=== PATIENT | male | born 1995 | race Caucasian/White ===

== ENCOUNTER 2018-01-12 01:58 | Emergency (ER) | payer BC ==
[~2018-01-12] VITALS: Ht 170.2 cm; Wt 81.4 kg
[2018-01-12 02:03] VITALS: Ht 170.2 cm; Wt 81.4 kg
[2018-01-12] MEDS ORDERED: TRAMADOL HCL 50 MG HOME PACK PO ONE (02:15)
[2018-01-12] MEDS ORDERED: CLINDAMYCIN HCL 150 MG CAP PO ONE (02:15)
[2018-01-12 02:33] VITALS: BP 138/83; PULSE 75; TEMP 36.8; O2SAT 100
[2018-01-12] MEDS ORDERED: CLIN150C PO (02:35)
[2018-01-12] MEDS ORDERED: TRAM-10 PO (02:35)
--- NOTE | 2018-01-12 03:59 | EMERGENCY ROOM VISIT NOTE ---
History First contact with patient: 02:08 Chief Complaint: DENTAL PAIN Stated Complaint: EXTREME TOOTH PAIN,NAUSEA,DIARRHEA Nursing Triage Summary: C/o top right dental pain. Appointment for dentist later in week. History of Present Illness The patient is a 22 year old male who presents to the Emergency Room with complaints of worsening right upper dental pain for the past few days he saw the dentist the other day and had a temporary filling placed. He was given T threes. No antibiotics. Pain described as throbbing, range in severity 8 out of 10. Nothing makes it better or worse. It does not radiate. Patient denies fever, chills, chest pain, dyspnea, cold symptoms, sore throat, earache. Review of Systems An 10 system review of systems was completed with positives and pertinent negatives listed in the HPI. Past Medical/Surgical History None Social History Smoking Status: Never Smoker Alcohol Use: none Marital Status: in relationship Current/Historical Medications Scheduled Clindamycin Hcl (Cleocin), 150 MG PO QID Scheduled PRN Tramadol (Ultram), 1 TAB PO Q4H PRN for Pain Miscellaneous Medications None (Patient States No Home Meds) Physical Exam Vital Signs Date Time Temp Pulse Resp B/P (MAP) Pulse Ox O2 Delivery O2 Flow Rate FiO2 01/12/18 02:33 36.8 75 18 138/83 100 18 02:03 36.8 75 18 138/83 100 Room Air Physical Exam VITALS: Vitals are noted on the nurse's note and reviewed by myself. Vital signs stable. GENERAL: White male, in no acute distress, nondiaphoretic, well-developed well- nourished. SKIN: The skin was without rashes, erythema, edema, or bruising. There is no tenting of the skin. Capillary reflex less than 2 seconds. HEAD: Normocephalic atraumatic. EARS: External auditory canals clear, tympanic membranes [place] without erythema or effusion bilaterally. EYES: Pupils equal round and reactive to light and accommodation. Conjunctivae without injection, sclerae without icterus. Extraocular movements intact. NOSE: Patent, turbinates without inflammation or discharge. No sinus tenderness. MOUTH: Mucous membranes moist. Pharynx without erythema or exudate. Uvula midline. Airway patent. Tongue does not deviate. Dental exam: Extensive dental decay throughout the mouth without palpable abscess. No Evert's angina NECK: Supple without nuchal rigidity. No lymphadenopathy. No thyromegaly. Cervical spine is nontender. No JVD. HEART: Regular rate and rhythm without murmurs gallops or rubs. LUNGS: Clear to auscultation bilaterally without wheezes, rales or rhonchi. No dullness to percussion. No retractions or accessory muscle use. ABDOMEN: Positive bowel sounds x 4. Normal tympanic percussion. Soft, nontender, without masses or organomegaly. Epperson sign negative. No guarding or rebound tenderness. MUSCULOSKELETAL: No muscle atrophy, erythema, or edema noted. NEURO: Patient was alert and oriented to person place and time. No focal neurological deficits. Medical Decision & Procedures Medications Administered Medications (Trade) Dose Ordered Sig/Emmanuel Route Start Time Stop Time Status Last Admin Dose Admin Clindamycin HCl (Cleocin Cap) 150 mg NOW ONCE PO 01/12/18 02:15 2 02:16 DC 01/12/18 02:27 150 MG Tramadol HCl (Ultram Home Pack) 1 homepack UD ONCE PO 01/12/18 02:15 218 02:16 DC 01/12/18 02:27 1 HOMEPACK ED Course Prior records reviewed and summarized as above. Triage Nursing notes reviewed. The patient's history was concerning for dental pain Differential diagnosis: Etiologies such as cellulitis, abscess, gingivitis, cavity, Evert's angina, as well as others were entertained.. Physical examination: The physical examination was consistent with dental caries ER treatment provided: Clindamycin, Ultram On reassessment the patient felt better. Diagnostics interpreted by me: Deferred This appears to be dental pain from dental caries. Patient had no palpable abscess. He is counseled on proper dental hygiene. He stated that the T3's did not help. He is informed to turn these into the pharmacy then. He was advised to see his dentist as soon as possible for his ongoing dental issues or here in the ER sooner for fevers, facial swelling, neck stiffness, worsening signs or symptoms or as needed. By the evaluation outlined above emergent etiologies such as abscess, Evert's angina, as well as others were deemed relatively unlikely. The pt informed about the findings as listed above. All questions were answered and pleased with the treatment. Return instructions were outlined and the patient was discharged in stable condition. Outpatient prescription management: Clindamycin, Ultram Referral: The patient was referred back to dentistry for follow-up in 2 to 3 days for a recheck of the current condition. Medical Decision As above [place] Drug Monitoring Program Search Results: patient reviewed within database, see additional documentation (Patient had 40 T3 prescribed by the dentist) Medication Reconcilliation Current Medication List: was personally reviewed by me Blood Pressure Screening Patient's blood pressure: Normal blood pressure Impression Primary Impression: Tooth pain with chewing Additional Impression: Dental caries Departure Information Dispostion Home / Self-Care Condition GOOD Prescriptions Tramadol (Ultram) 50 Mg Tab 1 TAB PO Q4H Y for Pain, #14 TAB For Initial Treatment Prov: Linda Del Real .ANGELIA 01/12/18 Clindamycin Hcl (CLEOCIN) 150 Mg Cap 150 MG PO QID for 10 Days, #40 CAP Prov: Linda Del Real .ANGELIA 01/12/18 Referrals No Doctor, Assigned (PCP) Forms HOME CARE DOCUMENTATION FORM, IMPORTANT VISIT INFORMATION Patient Instructions [facility] Tooth, [facility], ED Tooth Pain Additional Instructions Clindamycin 150mg: Take one pill 4 times daily for 10 days for your infection. Take with food, but avoid dairy. Avoid prolonged sun exposure since this medication makes you temporarily more susceptible to sunburns. All antibiotics can cause diarrhea. If this occurs and you feel worse or it does not resolve in 1-2 days follow up with your doctor or return to the Emergency Department as this could be signs of serious underlying problems. Any medication can cause an allergic reaction, stop the pills immediately and return to the ER for rash, hives, breathing difficulties, or swelling. Ulram 50mg: Take 1-2 pills every four hours for breakthrough pain. Avoid alcohol, operating machinery or dangerous equipment, working on ladders or roofs , DRIVING, or situations where being under the influence may be dangerous. It is recommended to use an [id number] stool softener such as Colace, 100mg twice daily while taking this medication to avoid constipation. Ibuprofen(Motrin, Advil) may be used for fever or pain. Use 600mg every six hours as needed. Take with food. Avoid using more than 2400mg in a 24 hour period. Do not use 2400mg per day for more than three consecutive days without physician direction. Prolonged inappropriate use can lead to stomach upset or ulcers. This medication can be taken if you need to drive, work, or perform activities which may be dangerous when taking narcotic pain medication. (AND/OR) Acetaminophen(Tylenol) may be used for fever or pain. Use 1000mg every six hours as needed. Avoid using more than 3000mg in a 24 hour period. This medication can be taken if you need to drive, work, or perform activities which may be dangerous when taking narcotic pain medication. [place] teeth twice a day, floss daily and do warm saltwater gargles 3 times a day. See a dentist as soon as possible for definitive care for your dental problem. Return to ER sooner for facial swelling, fever, redness, worsening signs or symptoms or as needed. Problem Qualifiers
== END 2018-01-12 02:39 | disposition home or self-care (01) ==
LOC: C.EDB 02:00 → C.EDA 02:39
DX: K08.89 Other specified disorders of teeth and supporting structures (principal); K02.9 Dental caries, unspecified